=== PATIENT | male | born 1960 | race Caucasian/White ===

== ENCOUNTER 2019-04-28 21:39 | Emergency (ER) | payer OTHER ==
[~2019-04-28] VITALS: Ht 170.2 cm; Wt 88.5 kg
--- OUTSIDE RECORDS SUMMARY | 2019-04-28 21:41 | XMS REPORT | Clinical Summary ---
Author Author [facility] Organization [facility] Address Unknown Phone Unavailable Care Team Providers Care Health And Social Care Teacher Name Role Phone Tano Couch MD PCP Allergies No Known Allergies Medications End Date Status Medication Sig Dispensed Refills Start Date Active atenolol (TENORMIN) 100 atenolol 100 0 MG tabletIndications: mg tablet Essential hypertension, TAKE 1 Embolus (HCC) TABLET BY MOUTH EVERY DAY Active atorvastatin (LIPITOR) 80 atorvastatin 0 MG tabletIndications: 80 mg tablet Essential hypertension, TAKE 1 Embolus (HCC) TABLET BY MOUTH EVERY DAY Active fenofibrate (LOFIBRA) 160 fenofibrate 0 MG tabletIndications: 160 mg tablet Essential hypertension, TAKE 1 Embolus (HCC) TABLET BY MOUTH EVERY DAY Active FLUoxetine (PROzac) 40 MG fluoxetine 40 0 capsuleIndications: mg capsule Essential hypertension, TAKE ONE Embolus (HCC) CAPSULE BY MOUTH EVERY DAY Active lisinopril lisinopril 20 0 (PRINIVIL,ZESTRIL) 20 mg mg tablet tabletIndications: Take 1 Essential hypertension, tablet every Embolus (HCC) day by oral route as directed for 90 days. 09/14/2019 Active ezetimibe (ZETIA) 10 mg Take 1 tablet 90 tablet 3 tablet (10 mg total) 8 by mouth daily. 12/14/2019 Active aspirin (ECOTRIN) 81 MG Take 1 tablet 100 tablet 3 enteric coated tablet (81 mg total) 9 by mouth daily. 12/13/2018 Discontinued aspirin (ECOTRIN) 81 MG Take 1 tablet 100 tablet 3 enteric coated tablet (81 mg total) 8 by mouth daily. 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); Essential hypertension; Hyperlipidemia LDL goal <70 09/14/2018 Office Visit Neurology Leslie Hdez MA Result - Cardiac Imaging/Diagnostic Testing 09/01/2018 Telephone Cardiology Lurdes Medina MD Essential hypertension (Primary Dx); Embolus (HCC); Hypercholesterolemia; Amaurosis fugax 08/30/2018 Office Visit Cardiology after 04/27/2018 Family History Medical History Relation Name Comments Heart disease Father coronary arterisclerosis Other Father malignant tumor of the colon Heart disease Mother coronary arterisclerosis Hypertension Sister Relation Name Status Comments Father Mother Sister Social History Date Tobacco Use Types Packs/Day Years Used Never Smoker Smokeless Tobacco: Chew Current User Alcohol Use Drinks/Week oz/Week Comments Yes 2-3 per day Sex Assigned at Date Recorded Not on file Industry Job Start Date Occupation Not on file Not on file Not on file Travel End Travel History Travel Start No recent travel history available. Last Filed Vital Signs Time Taken Vital Sign Reading 09/14/2018 12:31 PM CDT Blood Pressure 195/97 09/14/2018 12:31 PM CDT Pulse 53 - Temperature - - Respiratory Rate - 08/30/2018 10:44 AM CDT Oxygen Saturation 98% - Inhaled Oxygen - Concentration 09/14/2018 12:28 PM CDT Weight 91.6 kg (202 lb) 09/14/2018 12:28 PM CDT Height 170.2 cm (5' 7") 09/14/2018 12:28 PM CDT Body Mass Index 31.64 Plan of Treatment Health Maintenance Due Date Last Done Comments COLON CANCER SCREENING 2012 SHINGLES VACCINES (#1) 2012 INFLUENZA VACCINE 06/21/2019 Procedures Comments Procedure Name Priority Date/Time Associated Diagnosis MRA NECK WO CONTRAST Routine 09/26/2018 MRI BRAIN WO CONTRAST Routine 09/26/2018 ECHOCARDIOGRAM 2D Routine 08/30/2018 Essential hypertension COMPLETE W MMODE SPECTRAL 11:29 AM CDT Embolus (HCC) COLOR DOPPLER (57079) ECG 12-LEAD Routine 08/30/2018 Essential hypertension 8:38 AM CDT Embolus (HCC) after 04/27/2018 Results * MRI Brain Wo Contrast (09/26/2018) Narrative Performed At * MRA Neck Wo Contrast (09/26/2018) Narrative Performed At * Echocardiogram complete w contrast and 3D if needed (08/30/2018 11:29 AM CDT) Specimen Narrative Performed At [facility] Echocardiography Report Pat.Name:Ruddy WARREN.ID:[id number] .Date: 08/30/2018Refer.MD:LURDES MEDINA MD Exam Time: 10:49:00 AM Study Type:Routine Echo Height:67inWeight:202lb BSA: 2.03 m2 DOBAge:1960,58Y Sex: MALEBP:153/74 HR:66 bpmSonogrphr: Alo Zamduio RDCS Pat. Stat.:[facility]patient[facility] Study Status:Final Echo Event ID:[id number] Order ID:[id number] Reason for Study:Essential hypertension; Embolus History / Clinical:Hyperlipidemia, Hypertension, Carotid Artery Stenosis Procedures:2D Echo, Colorflow Doppler, Strain SUMMARY: LV size is normal.LV EF is normal. FINDINGS: LV: LV size is normal. LV EF is normal. LV GLS is -21.2%. Overallwall motion is normal. Estimated EF is 65-69% RV: RV size is normal. RV systolic function is normal. LA: LA size is normal. RA: RA size is normal. AO: Aortic root diameter is normal. ELAINE: No pericardial effusion. AV: No structural AV abnormalities noted. MV: No structural MV abnormalities noted. PV: No structural PV abnormalities noted. A trace of pulmonic regurgitation. TV: No structural TV abnormalities noted. A trace of tricuspid regurgitation Shaw: Normal diastolic function. Other:Insufficient TR jet to estimate PA systolic pressure. MEASUREMENTS: 2D Parasternal Long [place] Ds4 cmLVPWd1 cm LVOT 2.1 cmAo An2.7 cm LVIDd5 cmIndex2.5 cm/m Ao Rtd 3.2 cm Index1.6 cm/m LVIDs2.3 cm LV Adgm239.9 g(122-174) LV%fs 53.4 % LVM Index 70.4 g/m2 IVSd 0.7 cmRWT0.4 Signed 08/31/2018 03:33 PM Boyd Wolfe M.D. Procedure Note Interface, Radiology Results In - 08/31/2018 3:33 PM CDT [facility] Echocardiography Report Pat.Name: LACEY WARREN Ailin.ID: [id number] .Date: 08/30/2018 Refer.MD: LURDES MEDINA MD Exam Time: 10:49:00 AM Study Type:Routine Echo Height: 67in Weight: 202lb BSA: 2.03 m2 Age: 6 1960,58Y Sex: MALE BP: 153/74 HR: 66 bpm Sonogrphr: Alo Zamudio RDCS Pat. Stat.:Outpatient Room: [facility] Study Status:Final Echo Event ID:[id number] Order ID: [id number] Reason for Study:Essential hypertension; Embolus History / Clinical:Hyperlipidemia, Hypertension, Carotid Artery Stenosis Procedures:2D Echo, Colorflow Doppler, Strain SUMMARY: LV size is normal. LV EF is normal. FINDINGS: LV: LV size is normal. LV EF is normal. LV GLS is -21.2%. Overall wall motion is normal. Estimated EF is 65-69% RV: RV size is normal. RV systolic function is normal. LA: LA size is normal. RA: RA size is normal. AO: Aortic root diameter is normal. ELAINE: No pericardial effusion. AV: No structural AV abnormalities noted. MV: No structural MV abnormalities noted. PV: No structural PV abnormalities noted. A trace of pulmonic regurgitation. TV: No structural TV abnormalities noted. A trace of tricuspid regurgitation Shaw: Normal diastolic function. Other: Insufficient TR jet to estimate PA systolic pressure. MEASUREMENTS: 2D Parasternal Long [place] Ds 4 cm LVPWd 1 cm LVOT 2.1 cm Ao An 2.7 cm LVIDd 5 cm Index 2.5 cm/m Ao Rtd 3.2 cm Index 1.6 cm/m LVIDs 2.3 cm LV Mass 142.9 g (122-174) LV%fs 53.4 % LVM Index 70.4 g/m2 IVSd 0.7 cm RWT 0.4 Signed 08/31/2018 03:33 PM Boyd Wolfe M.D. Performing Organization Address City/State/Zipcode Phone Number [facility] [address] [place] [address] * ECG 12 lead (08/30/2018 8:38 AM CDT) [facility] Signature Ventricular 50 [facility] rate Atrial rate 50 [facility] [place] interval 148 [facility] QRSD interval 86 [facility] QT interval 434 [facility] QTC interval 395 [facility] P axis 1 53 H MUSE QRS axis 1 77 [facility] T wave axis 41 [facility] EKG impression Sinus bradycardia-Otherwise [facility] normal ECG-No previous ECGs available- Specimen Performing Organization Address City/State/Zipcode Phone Number [facility] [address] [place] [address] after 04/27/2018 Insurance Type Payer Benefit Subscriber ID Effective Phone Address Plan / Dates Group HMO CIGNA CIGNA OPEN xxxxxxxxxxx [id number] ACCESS/NET resent WORK Advance Directives Patient has advance care planning documents on file. For more information, martha felix contact: Aleks Bello [address] [place] [address]
--- OUTSIDE RECORDS SUMMARY | 2019-04-28 21:41 | XMS REPORT | Continuity of Care Document ---
Author Author Eliza allenann [facility] [place] Interface Address Unknown Phone Unavailable Problems Problem Status Onset Date Classification Date Reported Comments Source RT SHOULDER SX 05/18/16 Active 05/18/2016 [facility] [place] BBDC-COLORECTAL CANCER SCREENING Active 09/10/2013 [facility] RT SHOULDER Active [facility] [place] RIGHT SHOULDER Active [facility] [place] LT SHOULDER Active [facility] [place] Medications Medication Details Route Status Patient Instructions Ordering Provider Order Date Source Allergies, Adverse Reactions, Alerts Substance Category Reaction Severity Reaction type Status Date Reported Comments Source Immunizations Immunization Date Given Site Status Last Updated Comments Source Results Order Name Results Value Reference Range Date Interpretation Comments Source Shoulder wo contrast MRI Shoulder wo contrast MRI EXAM: MR RIGHT SHOULDER WITHOUT CONTRAST DATE: 03/25/2016 7:48 AM CDT INDICATION: M75.121 Complete rotator cuff tear or rupture of right shoulder, not specified as traumatic COMPARISON: None available TECHNIQUE: Axial, oblique coronal, and oblique sagittal MR images of the shoulder. IV contrast: None. FINDINGS: Biceps tendon: Diminutive appearance of the intra-articular aspect with normal appearance of the extra-articular portion within the bicipital groove. Labrum: Chronic tear of the anterior inferior aspect. Mild intrasubstance degeneration of the superior labrum. Rotator cuff: Supraspinatus: Fraying of the anteriormost distal fibers. 1.4 cm full-thickness tear of the conjoined tendon with approximately 1 cm of retraction. Infraspinatus: Tendinosis of the distal fibers. Subscapularis: Mild tendinosis of the superior most fibers of the distal tendon. Teres minor: Intact. Muscles: Nearly 100% fatty atrophy of the subscapularis. Cartilage: No focal defects. Acromial osseous outlet: There is a type I acromion. Mild to moderate hypertrophic degenerative changes of the acromioclavicular joint noted. Bones: Visualized marrow signal is unremarkable. No fracture. Mild superior subluxation at the glenohumeral joint. Soft tissues: Small amount of subdeltoid bursal fluid secondary to the full- thickness focal rotator cuff tear described above. IMPRESSION: 1. Focal 1.4 cm AP dimension full-thickness tear of the conjoined tendon with approximately 1 cm retraction. 2. Severe fatty atrophy of the subscapularis muscle. 3. Chronic, nondisplaced anteroinferior labral tear. 4. High signal and diminutive intra-articular biceps tendon representing tendinosis with potential partial-thickness tear. 03/25/2016 - - This report was dictated by a [employer]/Fellow. I have personally reviewed the images as well as the Resident's interpretation and agree with the findings. Read by: Iván Fernandez (Resident) Resident: Iván Fernandez (Resident) Dictated Date/time: 03/25/16 11:34 Electronically Signed by: Ebenezer Lopez MD 03/26/16 14:20 FINAL REPORT DELIA Lopez Vital Signs Vital Sign Value Date Comments Source Encounters Location Location Details Encounter Type Encounter Number Reason For Visit Attending Provider ADM Date DC Date Status Source [facility] [id number] KARINA WEISS 11/12/2013 11/12/2013 Active [facility] [place] [facility] [id number] Henry Valenzuela 03/25/2016 03/26/2016 DELIA Lopez [facility] [place] [facility] [id number] Ayden Chan 06/09/2016 07/09/2016 [facility] [place] [facility] [place] [facility] [id number] Ayden Chan 07/09/2016 08/08/2016 [facility] [place] [facility] [place] [facility] [id number] Ayden Chan 08/09/2016 09/08/2016 [facility] [place] [facility] [place] [facility] [id number] Ayden Chan 09/08/2016 10/08/2016 [facility] [place] [facility] [place] [facility] [id number] Ayden Chan 10/11/2016 11/10/2016 [facility] [place] Procedures Procedure Code Date Perfomer Comments Source
--- OUTSIDE RECORDS SUMMARY | 2019-04-28 21:42 | XMS REPORT | Summary of Care ---
Author Author [facility] Address Unknown Phone Unavailable Encounter Encntr_aligerardo([facility]) [id number] Date(s): 07/09/16 - 08/07/16 [facility] Discharge Disposition: Home or Self Care Attending Physician: Ayden Chan MD Vital Signs No data available for this section Problem List No data available for this section Allergies, Adverse Reactions, Alerts No data available for this section Medications No data available for this section Results No data available for this section Immunizations No data available for this section Procedures No data available for this section Social History No data available for this section Assessment and Plan No data available for this section
--- OUTSIDE RECORDS SUMMARY | 2019-04-28 21:42 | XMS REPORT ---
Author Organization Unknown Address [address] [place] [address] Phone [phone] Care Team Providers Care Cleaning Staff Supervisor Name Role Phone MARGARITA GARCIA MD 130 [phone] Allergies Code Code System Name Reaction Severity Status Onset NKDA Medications Name Status Start Date Stop Date acetaminophen 300 mg-codeine 30 mg tablet Completed 08/12/2016 atenolol 100 mg tablet TAKE 1 TABLET BY MOUTH EVERY DAY Active Not available atorvastatin 80 mg tablet TAKE 1 TABLET BY MOUTH EVERY DAY Active Not available benzonatate 200 mg capsule Completed 02/24/2017 ndicmzrndoutuqk-[id number]-TD 2 mg-30 mg-10 mg/5 mL syrup Completed 02/24/2017 clobetasol 0.05 % topical ointment Completed 08/12/2016 Crestor 40 mg tablet Completed 08/12/2016 cyclobenzaprine 5 mg tablet Completed 08/12/2016 eszopiclone 1 mg tablet Completed 08/12/2016 fenofibrate 160 mg tablet TAKE 1 TABLET BY MOUTH EVERY DAY Active Not available fluoxetine 40 mg capsule TAKE ONE CAPSULE BY MOUTH EVERY DAY Active Not available fluticasone 50 mcg/actuation nasal spray,suspension Completed 02/24/2017 gabapentin 300 mg capsule Completed 08/12/2016 hydrocodone 10 mg-acetaminophen 325 mg tablet Take 1 tablet as needed by oral route. Completed 02/24/2017 lisinopril 10 mg tablet TAKE 1 TABLET BY MOUTH EVERY DAY Active Not available methylprednisolone 4 mg tablets in a dose pack Completed 08/12/2016 ondansetron 4 mg disintegrating tablet Completed 08/12/2016 tramadol 50 mg tablet Completed 08/12/2016 Zithromax Z-Daryl 250 mg tablet TAKE 2 TABLETS (500 MG) BY ORAL ROUTE ONCE DAILY FOR 1 DAY THEN 1 TABLET (250 MG) BY ORAL ROUTE ONCE DAILY FOR 4 DAYS Completed 02/24/2017 Notes: OTC Nasacort AQ Problems Name Status Onset Date Source Mixed Hyperlipidemia Active 08/12/2016 Body Mass Index 25-29 - Overweight Active 08/12/2016 Macrocytosis - No Anemia Active 08/12/2016 Anxiety Active 08/12/2016 Benign Essential Hypertension Active 08/12/2016 Chews Tobacco Active 08/12/2016 Procedures Date Name Performed by 11/21/2012 Colonoscopy Notes: within the last 5 years (wnl)NO EMR FILEREPEAT IN 10 YRS PER PT Information not available Neck Spine Fusion Notes: Unknown Levels Information not available Nasal Surgery Procedure Notes: Deviated Septum and Unknown Sinus Procedure Information not available Shoulder Joint Surgery Notes: Right Rotator Cuff Repair Information not available 08/12/2016 Electrocardiogram [facility] [address] [place] [address] (Work Place) Lab Results Date Name Specimen Result Interpretation Description Value Range Status Address 08/25/2017 CBC W/ Auto Diff Wbc 5.56 x10*3/L 4.23-9.07 x10*3/L Final [facility] Laboratory: [address] Karol Cordero [address] [place] [address] Low Rbc 4.44 10*12/L 4.63-6.08 10*12/L Final [facility] Laboratory: [address] Karol Cordero [address] [place] [address] Hemoglobin 14.90 g/dL 13.70-17.50 g/dL Final [facility]: [address] [facility] Hemat[facility]rit 43.8 % 40.1-51.0 % Final [facility] Laboratory: [address] Karol Cordero [address] [place] [address] Mcv 98.6 fL 80.0-100.0 fL Final [facility] Laboratory: [address] Karol Cordero [address] [place] [address] High Mch 33.6 pg 25.7-32.2 pg Final [facility] Laboratory: 9055 Karol Simpson [facility] Mchc 34.0 g/dL 32.3-36.5 g/dL Final [facility]: [address] [facility] RDW-SD 41.9 fL 35.1-43.9 fL Final [facility] Laboratory: [address] Karol Cordero [address] [place] [address] Platelet Count 279.0 k/uL 163.0-337.0 k/uL Final [facility] Laboratory: [address] Karol Simpson [address] Mpv 11.4 fL 7.5-11.5 fL Final [facility] Laboratory: [address] Karol Mckenna [place] Neut% 62.5 % 34.0-67.9 % Final [facility] Laboratory: [address] Karol Mckenna [place] Lymph% 22.1 % 21.8-53.1 % Final [facility] Laboratory: [address] Karol Mckenna, [place] Mon% 11.7 % 5.3-12.2 % Final [facility] Laboratory: [address] Kar[address] Mckenna [place] Eos% 3.2 % 0.8-7.0 % Final [facility] Laboratory: [address] Karol Mckenna, [place] Baso% 0.5 % 0.2-1.2 % Final [facility] Laboratory: [address] Kar[address] Mckenna [place] Neut# 3.5 x10*3/L 1.8-5.4 x10*3/L Final [facility]: [address] [facility] Low Lymph# 1.2 x10*3/L 1.3-3.6 x10*3/L Final [facility]: [address] [facility] Mon# 0.7 x10*3/L 0.3-0.8 x10*3/L Final [facility] Laboratory: [address] Karol Cordero [address] [place] [address] Eos# 0.18 x10*3/L 0.04-0.54 x10*3/L Final [facility]: [address] [facility] Baso# 0.03 x10*3/L 0.01-0.08 x10*3/L Final [facility]: [address] [facility] 08/25/2017 CMP, Serum or Plasma Alt 36 U/L 0-55 U/L Final [facility] Laboratory: [address] Karol Simpson [address] Ast 23 U/L 5-34 U/L Final [facility]: [address] [facility] Bun 15.7 mg/dL 8.4-25.7 mg/dL Final [facility] Laboratory: [address] Karol Cordero [address] [place] [address] Alk Phos 45 unit/L 40-150 unit/L Final [facility]: [address] Karol Simpson [address] Glucose 95 mg/dL 70-99 mg/dL Final [facility] Laboratory: [address] Kar[address] Mckenna [place] Albumin 3.9 g/dL 3.5-5.0 g/dL Final [facility] Laboratory: [address] Kar[address] Mckenna, [place] Creatinine 0.98 mg/dL 0.72-1.25 mg/dL Final [facility]: [address] Kar[address] Mckenna, [place] eGFR Non- >60 mL/min/1.73m2 >60 mL/min/1.73m2 Final [facility]: [address] Kar[address] Mckenna, [place] High Total Bilirubin 1.3 mg/dL 0.2-1.2 mg/dL Final [facility] Laboratory: [address] Karol Mckenna, [place] eGFR - >60 mL/min/1.73m2 >60 mL/min/1.73m2 Final [facility] Laboratory: [address] Karol Mckenna, [place] Sodium 142 mEq/L 136-145 mEq/L Final [facility] Laboratory: [address] Karol Cordero [address] [place] [address] Potassium 4.8 mEq/L 3.5-5.1 mEq/L Final [facility] Laboratory: [address] Kar[address] Simpson [address] Chloride 105 mmol/L 98-107 mmol/L Final [facility] Laboratory: [address] Karol Mckenna, [place] Total Protein 7.4 g/dL 6.4-8.3 g/dL Final [facility]: [address] [facility] Calcium 10.0 mg/dL 8.4-10.2 mg/dL Final [facility] Laboratory: [address] Kar[address] Mckenna, [place] Co2 25.8 mmol/L 22.0-29.0 mmol/L Final [facility] Laboratory: [address] Karol Simpson [address] Anion Gap 11 calc Final [facility] Laboratory: [address] Karol Mckenna, [place] 08/25/2017 Lipid Panel, Serum Hdl 42 mg/dL 40-60 mg/dL Final [facility]: [address] [facility] High Triglyceride 189 mg/dL 0-149 mg/dL Final [facility] Laboratory: [address] Kar[address] [place] [address], [place] VLDL Calc. 38 mg/dL Final [facility]: [address] Karol Simpson [address] cholesterol/HDL Ratio 3.4 mg/dL Final [facility] Laboratory: [address] Karol Simpson [address] non-HDL Cholesterol Calc. 101 mg/dL 0-160 mg/dL Final [facility] Laboratory: [address] Karol Simpson [address] Cholesterol 143 mg/dL 0-199 mg/dL Final [facility] Laboratory: [address] Karol Simpson [address] LDL Calc. 63 mg/dL 0-130 mg/dL Final [facility]: [address] Karol Simpson [address] 08/25/2017 TSH, Serum or Plasma Tsh 1.676 uIU/mL 0.350-4.940 uIU/mL Final [facility] Laboratory: [address] Karol dejon [address] 02/24/2017 CMP, Serum or Plasma Alt 25 U/L 0-55 U/L Final [facility] Laboratory: [address] Kar[address] dejon [address] Ast 18 U/L 5-34 U/L Final [facility]: [address] Kar[address] dejon [address] Bun 14 mg/dL 8-26 mg/dL Final [facility]: [address] Kar[address] dejon [address] Alk Phos 44 unit/L 40-150 unit/L Final [facility]: [address] Karol dejon [address] Glucose 97 mg/dL 70-99 mg/dL Final [facility] Laboratory: [address] Kar[address] dejon [address] Albumin 4.0 g/dL 3.5-5.0 g/dL Final [facility] Laboratory: [address] Kar[address] dejon [address] Creatinine 0.90 mg/dL 0.72-1.25 mg/dL Final [facility] Laboratory: [address] Kar[address] dejon [address] eGFR Non- >60 mL/min/1.73m2 >60 mL/min/1.73m2 Final [facility] Laboratory: [address] Akrol dejon [address] Total Bilirubin 0.9 mg/dL 0.2-1.2 mg/dL Final [facility] Laboratory: [address] Kar[address] dejon [address] eGFR - >60 mL/min/1.73m2 >60 mL/min/1.73m2 Final [facility] Laboratory: [address] Kar[address] dejon [address] Sodium 140 mEq/L 137-144 mEq/L Final [facility] Laboratory: [address] Karol dejon [address] Potassium 4.7 mEq/L 3.5-5.0 mEq/L Final [facility] Laboratory: [address] Karol dejon [address] Chloride 103 mmol/L 101-110 mmol/L Final [facility] Laboratory: [address] Karol dejon [address] Total Protein 7.2 g/dL 6.4-8.3 g/dL Final [facility] Laboratory: [address] Karol dejon [address] Calcium 10.1 mg/dL 8.4-10.2 mg/dL Final [facility] Laboratory: [address] Kar[address] dejon [address] High Co2 29.1 mmol/L 21.0-29.0 mmol/L Final [facility] Laboratory: [address] Anion Gap 8 calc Final [facility] Laboratory: [address] Karol dejon [address] 02/24/2017 Lipid Panel, Serum Low Hdl 39 mg/dL 40-60 mg/dL Final [facility] Laboratory: [address] Karol dejon [address] High Triglyceride 275 mg/dL 0-149 mg/dL Final [facility] Laboratory: [address] VLDL Calc. 55 mg/dL Final [facility]: [address] cholesterol/HDL Ratio 6 mg/dL Final [facility] Laboratory: [address] Karol dejon [address] High non-HDL Cholesterol Calc. 183 mg/dL 0-160 mg/dL Final [facility] Laboratory: [address] Kar[address] dejon [address] High Cholesterol 222 mg/dL 0-199 mg/dL Final [facility] Laboratory: [address] Karol dejon [address] LDL Calc. 128 mg/dL 0-130 mg/dL Final [facility] Laboratory: [address] Karol dejon [address] 02/24/2017 TSH, Serum or Plasma Tsh 1.081 uIU/mL 0.350-4.940 uIU/mL Final [facility] Laboratory: [address] Karol dejon [address] 02/24/2017 PSA, Serum or Plasma PSA, Total 0.76 NG/mL <4.00 NG/mL Final [facility] Laboratory: [address] Kar[address] dejon [address] 08/12/2016 Hepatitis C Virus RNA, Quant, PCR, Serum or Plasma Normal Hepatitis C Antibody non-reactive non-reactive Final [facility] Laboratory: [address] Kar[address] Cordero [address] [place] [address] Normal Signal to Cut-off 0.02 <1.00 Final [facility]: [address] [facility] 08/12/2016 CBC W/ Auto Diff Wbc 4.43 x10*3/L 2.90-10.50 x10*3/L Final [facility]: 55 [facility] Rbc 4.61 10*12/L 3.61-5.21 10*12/L Final [facility] Laboratory: [address] Karol Simpson [address] Hemoglobin 15.1 g/dL 12.3-17.5 g/dL Final [facility] Laboratory: 55 Karol Cordero [address] [place] [address] Hematocrit 44.6 % 37.1-51.3 % Final [facility] Laboratory: [facility] Karol Cordero [address] [place] [address] Mcv 96.7 fL 79.4-101.6 fL Final [facility] Laboratory: [facility] Karol Cordero [address] [place] [address] Mch 32.8 pg 26.2-34.8 pg Final [facility] Laboratory: [address] Kar[address] Cordero [address] [place] [address] Mchc 33.9 g/dL 30.2-35.6 g/dL Final [facility] Laboratory: [address] Kar[address] Cordero [address] [place] [address] RDW-SD 40.8 fL 35.8-49.8 fL Final [facility] Laboratory: 55 Karol Simpson [address] Platelet Count 300.0 k/uL 118.8-347.0 k/uL Final [facility] Laboratory: 55 Karol Cordero [address] [place] [address] Mpv 11.1 fL 8.4-13.4 fL Final [facility] Laboratory: [address] Kar[address] Cordero [address] [place] [address] Neut% 53.3 % 39.1-76.5 % Final [facility] Laboratory: [address] Simpson [address] Lymph% 28.4 % 13.8-46.8 % Final [facility] Laboratory: [address] Simpson [address] Mon% 13.3 % 4.6-14.4 % Final [facility] Laboratory: [address] Simpson [address] Eos% 4.300 % 0.001-7.300 % Final [facility] Laboratory: [address] Karol Mckenna [place] Baso% 0.7 % 0.0-1.5 % Final [facility] Laboratory: [address] Karol Mckenna [place] Neut# 2.4 x10*3/L 0.8-7.0 x10*3/L Final [facility] Laboratory: [address] Kar[address] Mckenna [place] Lymph# 1.3 x10*3/L 0.6-3.2 x10*3/L Final [facility] Laboratory: [address] Kar[address] Mckenna, [place] Mon# 0.6 x10*3/L 0.2-1.0 x10*3/L Final [facility] Laboratory: [address] Kar[address] Mckenna [place] Eos# 0.19 x10*3/L 0.00-0.51 x10*3/L Final [facility] Laboratory: [address] Kar[address] Mckenna [place] Baso# 0.030 x10*3/L 0.001-0.090 x10*3/L Final [facility] Laboratory: [address] Kar[address] Mckenna [place] 08/12/2016 CMP, Serum or Plasma Alt 36.0 U/L 0.0-55.0 U/L Final [facility] Laboratory: [address] Kar[address] Cordero [address] [place] [address] Ast 20.0 U/L 5.0-34.0 U/L Final [facility]: [address] [facility] Bun 15.0 mg/dL 8.0-26.0 mg/dL Final [facility] Laboratory: [address] Karol Cordero [address] [place] [address] Alk Phos 50.0 unit/L 40.0-150.0 unit/L Final [facility]: [address] [facility] Glucose 92.0 mg/dL 70.0-99.0 mg/dL Final [facility]: [address] [facility] Albumin 4.2 g/dL 3.5-5.0 g/dL Final [facility]: [address] [facility] Creatinine 0.9 mg/dL 0.7-1.3 mg/dL Final [facility]: [address] [facility] eGFR Non- >60 mL/min/1.73m2 >60.0 mL/min/1.73m2 Final [facility] Laboratory: [address] Kar[address] Mckenna, [place] Total Bilirubin 1.0 mg/dL 0.2-1.2 mg/dL Final [facility] Laboratory: [address] Karol Mckenna, [place] eGFR - >60 mL/min/1.73m2 >60.0 mL/min/1.73m2 Final [facility] Laboratory: [address] Karol Mckenna, [place] Sodium 142.0 mEq/L 137.0-144.0 mEq/L Final [facility] Laboratory: [address] Karol Mckenna, [place] High Potassium 5.3 mEq/L 3.5-5.0 mEq/L Final [facility] Laboratory: [address] Simpson [place] [address], [place] Chloride 106.0 mmol/L 101.0-110.0 mmol/L Final [facility]: 9055 [facility] Total Protein 7.6 g/dL 6.4-8.3 g/dL Final [facility] Laboratory: [address] Simpson [address] High Calcium 10.3 mg/dL 8.4-10.2 mg/dL Final [facility] Laboratory: [address] Karol Cordero [facility], [place] Co2 26.5 mmol/L 22.0-29.0 mmol/L Final [facility]: [address] [facility] Anion Gap 9.5 calc Final [facility] Laboratory: [address] Karol Mckenna, [place] 08/12/2016 Lipid Panel, Serum Hdl 44.0 mg/dL 40.0-60.0 mg/dL Final [facility]: [address]055 [facility] High Triglyceride 327.0 mg/dL 0.0-149.0 mg/dL Final [facility] Laboratory: [address] [place] [address], [place] VLDL Calc. 65.4 mg/dL Final [facility]: [address] Karol Simpson [facility] cholesterol/HDL Ratio 3.7 mg/dL Final [facility] Laboratory: [address] Kar[address] Simpson [place] [address], [place] non-HDL Cholesterol Calc. 118.0 mg/dL 0.0-160.0 mg/dL Final [facility] Laboratory: [address] Simpson [address] Cholesterol 162.0 mg/dL 0.0-199.0 mg/dL Final [facility] Laboratory: [address] LDL Calc. 52.6 mg/dL 0.0-130.0 mg/dL Final [facility] Laboratory: [address] 10/29/2015 Lipid Panel, Serum No observation recorded. Electrocardiogram Rate & Rhythm 65 [facility]: [address] [facility] [place] Interval 146 [facility]: [address] [facility] QRS Duration 96 [facility]: [address] [facility] QT Interval 404 [facility]: [address] [facility] Past Encounters 02/23/2018 Mixed Hyperlipidemia; Benign Essential Hypertension; Anxiety; Allergic Rhinitis; Body Mass Index 25-29 - Overweight Tano Vernon MD: [address] [place] [phone], Ph. 08/25/2017 Adult Health Examination; Benign Essential Hypertension; Mixed Hyperlipidemia; Anxiety; Body Mass Index 25-29 - Overweight; Influenza Vaccination Tanosarah Vernon MD: [address] [place] [phone], Ph. 02/24/2017 Benign Essential Hypertension; Mixed Hyperlipidemia; Anxiety; Screening for Malignant Neoplasm of Prostate; Body Mass Index 25-29 - Overweight; Alcohol Abuse Tano Vernon MD: [address] [place] [phone], Ph. 08/25/2016 Upper Respiratory Infection; Skin Lesion Tano Vernon MD: [address] [place] [phone], Ph. 08/23/2016 Dafne Larios MD: [address] [place] [phone], Ph. 08/12/2016 Benign Essential Hypertension; Mixed Hyperlipidemia; Anxiety; Macrocytosis - No Anemia; Body Mass Index 25-29 - Overweight; Adult Health Examination; Chews Tobacco Dafne Larios MD: [address] [place] [address], Ph. Social History Smoking Status Never Smoker Vaccine List Vaccine Type Tdap 12/30/2015 Plan of Care Reminders Provider Appointments None recorded. Lab None recorded. Referral None recorded. Procedures None recorded. Surgeries None recorded. Imaging None recorded. Vitals 02/23/2018 08:15AM Est Patient Height Weight BMI Blood Pressure 5 ft 10 in 200 lbs 28.7 kg/m2 (1) 140/80 mm[Hg] (2) 140/80 mm[Hg] 08/25/2017 08:15AM Est Patient Height Weight BMI Blood Pressure 5 ft 10 in 199 lbs 28.6 kg/m2 140/76 mm[Hg] 02/24/2017 10:30AM Est Patient Height Weight BMI Blood Pressure 5 ft 10 in 199 lbs 28.6 kg/m2 137/79 mm[Hg] 08/25/2016 11:00AM Work In Same Day Height Weight BMI Blood Pressure 5 ft 10 in 194 lbs 27.8 kg/m2 139/90 mm[Hg] 08/12/2016 07:00AM Est Patient Height Weight BMI Blood Pressure 5 ft 10 in 196 lbs 28.1 kg/m2 (1) 164/93 mm[Hg] (2) 151/99 mm[Hg]
--- OUTSIDE RECORDS SUMMARY | 2019-04-28 21:42 | XMS REPORT | Summary of Care ---
Author Author [facility] Address Unknown Phone Unavailable Encounter [email or web address]([facility]) [id number] Date(s): 06/09/16 - 07/08/16 [facility] Discharge Disposition: Home or Self Care Attending [...]
--- OUTSIDE RECORDS SUMMARY | 2019-04-28 21:42 | XMS REPORT | Summary of Care ---
Author Author [facility] Address Unknown Phone Unavailable Encounter [email or web address]([facility]) [id number] Date(s): 09/08/16 - 10/07/16 [facility] Discharge Disposition: Home or Self Care Attending [...]
--- OUTSIDE RECORDS SUMMARY | 2019-04-28 21:42 | XMS REPORT | Encounter Summary ---
Author Organization Unknown Address [address] [place] [address] Phone [phone] Care Team Providers Care Graphotype Operator Name Role Phone Dr. Tano Stein 3 [phone] Reason for Visit Benign essential hypertension; Mixed hyperlipidemia; Annual physical - male with PSA Instructions 1. Adult health examination CBC w/ auto diff CMP, serum or plasma lipid panel, serum TSH, serum or plasma urinalysis, dipstick 2. Screening for malignant neoplasm of prostate PSA, serum or plasma 3. Benign essential hypertension atenolol 100 mg tablet aspirin 81 mg tablet,delayed release lisinopril 40 mg tablet 4. Mixed hyperlipidemia atorvastatin 80 mg tablet ezetimibe 10 mg tablet fenofibrate 160 mg tablet 5. Anxiety fluoxetine 40 mg capsule 6. Microscopic hematuria urinalysis complete, reflex culture 7. Pain in right knee XR, knee, 1 or 2 view - PLEASE CALL PATIENT AND SCHEDULE HIM AN APPOINTMENT. PLEASE FAX RESULTS TO [phone]. 8. Body mass index 25-29 - overweight learning about healthy weight Discussion Note: None recorded. Plan of Care Reminders Provider Appointments Est Patient 06/01/2019 8:15AM Tano Vernon MD Lab CBC W/ Auto Diff 03/02/2019 [facility] CMP, Serum or Plasma 03/02/2019 [facility] Lipid Panel, Serum 03/02/2019 [facility] TSH, Serum or Plasma 03/02/2019 [facility] Urinalysis, Dipstick 03/02/2019 [facility] ([facility] [place] PSA, Serum or Plasma 03/02/2019 [facility] Urinalysis Complete, Reflex Culture 03/02/2019 [facility] Referral None recorded. Procedures None recorded. Surgeries None recorded. Imaging XR, Knee, 1 or 2 View 03/02/2019 [facility] [place] Medications Name Start Date aspirin 81 mg tablet,delayed release Take 1 tablet every day by oral route. atenolol 100 mg tablet TAKE 1 TABLET BY MOUTH EVERY DAY atorvastatin 80 mg tablet TAKE 1 TABLET BY MOUTH EVERY DAY ezetimibe 10 mg tablet Take 1 tablet every day by oral route. fenofibrate 160 mg tablet TAKE 1 TABLET BY MOUTH EVERY DAY fluoxetine 40 mg capsule TAKE 1 CAPSULE BY MOUTH EVERY DAY lisinopril 30 mg tablet Take 1 tablet every day by oral route as directed for 90 days. lisinopril 40 mg tablet Take 0.5 tablets twice a day by oral route as directed for 90 days. Medications Administered None recorded. Vitals Height Weight BMI Blood Pressure 5 ft 10 in 195.8 lbs 28.1 kg/m2 124/70 mm[Hg] Lab Results None recorded. 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 [address] [place] [address] (Work Place) Vaccine List Vaccine Type Tdap 12/30/2015 Social History Smoking Status Never Smoker Past Encounters 03/02/2019 Adult Health Examination; Screening for Malignant Neoplasm of Prostate; Benign Essential Hypertension; Mixed Hyperlipidemia; Anxiety; Microscopic Hematuria; Pain in Right Knee; Body Mass Index 25-29 - Overweight Tano Vernon MD: [address] [place] [address], Ph. History of Present Illness Note:Coming for a physical exam and f/u on chronic conditions. BPs at home 150s/90 in the afternoons. Compliant with meds and exercise. Non compliant with diet. No side effects with meds. No new concerns. Review of Systems Comprehensive General Adult ROS Reported By: Patient Constitutional: Constitutional: no fever, no night sweats, no significant weight gain, no significant weight loss, no exercise intolerance Eyes: Eyes: no dry eyes, no irritation, vision change ENMT: Ears: no difficulty hearing, no ear pain. Nose: no frequent nosebleeds, no nose problems, no sinus problems. Mouth/Throat: no sore throat, no bleeding gums, no snoring, no dry mouth, no mouth ulcers, no oral abnormalities, no teeth problems Cardiovascular: Cardiovascular: no chest pain, no arm pain on exertion, no shortness of breath when walking, no shortness of breath when lying down, no palpitations, no known heart murmur, no lightheadedness Respiratory: Respiratory: no cough, no wheezing, no shortness of breath, no coughing up blood, no sleep apnea Gastrointestinal: Gastrointestinal: no abdominal pain, no nausea, no vomiting, no constipation, normal appetite, no diarrhea, not vomiting blood, no dyspepsia, no GERD Genitourinary: Genitourinary: no incontinence, no difficulty urinating, no hematuria, no increased frequency Musculoskeletal: Musculoskeletal: no muscle aches, no muscle weakness, no back pain, no swelling in the extremities, arthralgias/joint pain Integumentary: Skin: no abnormal mole, no jaundice, no rashes, no laceration Neurologic: Neurologic: no loss of consciousness, no weakness, no numbness, no seizures, no dizziness, no migraines, no headaches, no tremor Psychiatric: Psych: no depression, no sleep disturbances, feeling safe in a relationship, no alcohol abuse, no anxiety, no hallucinations, no suicidal thoughts Endocrine: Endocrine: no fatigue Hematologic/Lymphatic: Hematologic/Lymphatic no swollen glands, no bruising, no excessive bleeding Allergic/Immunologic: Allergy/Immunologic: no runny nose, no sinus pressure, no itching, no hives, no frequent sneezing Physical Exam General Adult Exam (male) Reported By: Patient Constitutional: General Appearance: healthy-appearing, overweight. Level of Distress: NAD. Ambulation: ambulating normally Psychiatric: Insight: good judgement. Mental Status: active and alert, normal mood, normal affect. Orientation: to time, to place, to person. Memory: recent memory normal, remote memory normal Eyes: Lids and Conjunctivae: non-injected, no discharge. EOM: EOMI ENMT: Ears: TMs clear. Nose: no sinus tenderness. Lips, Teeth, and Gums: no mouth or lip ulcers. Oropharynx: moist mucous membranes Neck: Neck: supple, trachea midline. Thyroid: no enlargement, non-tender Lungs: Auscultation: breath sounds normal Cardiovascular: Heart Auscultation: RRR, normal S1, normal S2, no murmurs. Neck vessels: no carotid bruits. Pulses including femoral / pedal: normal throughout Abdomen: Inspection and Palpation: soft, non-distended, no tenderness, no guarding Musculoskeletal:: Motor Strength and Tone: normal, normal tone. Joints, Bones, and Muscles: normal movement of all extremities, no contractures, no bony abnormalities, no malalignment, no tenderness. Extremities: no edema Neurologic: Gait and Station: normal gait. Cranial Nerves: grossly intact. Coordination and Cerebellum: no tremor Skin: Inspection and palpation: no rash, no lesions Back: Thoracolumbar Appearance: normal curvature
--- OUTSIDE RECORDS SUMMARY | 2019-04-28 21:42 | XMS REPORT | Summary of Care ---
Author Author [facility] Address Unknown Phone Unavailable Encounter [email or web address]([facility]) [id number] Date(s): 10/11/16 - 11/09/16 [facility] Discharge Disposition: Home or Self Care Attending [...]
--- OUTSIDE RECORDS SUMMARY | 2019-04-28 21:42 | XMS REPORT | Encounter Summary ---
Author Organization Unknown Address [address] [place] [address] Phone [phone] Care Team Providers Care Customer Logistics Manager Name Role Phone Dr. Taon Stein 3 [phone] Kaleb Kelly MD 111 [phone] Joni Shin MD 111 [phone] Ayden Chan MD 130 [phone] Reason for Visit Anxiety; Benign essential hypertension; Mixed hyperlipidemia Instructions 1. Benign essential hypertension atenolol 100 mg tablet aspirin 81 mg tablet,delayed release lisinopril 30 mg tablet 2. Mixed hyperlipidemia atorvastatin 80 mg tablet fenofibrate 160 mg tablet ezetimibe 10 mg tablet 3. Anxiety fluoxetine 40 mg capsule 4. Immunization 5. Body mass index 25-29 - overweight learning about healthy weight 6. Chews tobacco stopping smokeless tobacco use: care instructions Discussion Note: None recorded. Plan of Care Reminders Provider Appointments Return to Office on or around 03/13/2019 Tano Vernon MD Lab None recorded. Referral None recorded. Procedures None recorded. Surgeries None recorded. Imaging None recorded. Medications Name Start Date aspirin 81 mg [...] 1 CAPSULE BY MOUTH EVERY DAY lisinopril 20 mg tablet TAKE 1 TABLET BY MOUTH EVERY DAY DIRECTED lisinopril 30 mg tablet Take 1 tablet every day by oral route as directed for 90 days. Medications Administered None recorded. Vitals Height Weight BMI Blood Pressure 5 ft 10 in 200 lbs 28.7 kg/m2 130/76 mm[Hg] Lab Results None recorded. Allergies Code [...] available Shoulder Joint Surgery Information not available Vaccine List Vaccine Type Tdap 12/30/2015 Social History Smoking Status Never Smoker Past Encounters 12/14/2018 Benign Essential Hypertension; Mixed Hyperlipidemia; Anxiety; Immunization; Body Mass Index 25-29 - Overweight; Chews Tobacco Tano Vernon MD: [address] [place] [address], Ph. History of Present Illness Note:Coming for a physical exam and f/u on chronic conditions. Needs refill in meds. Compliant with meds. Non compliant with diet or exercise. BPs at home 150s/90s. No side effects with meds. No new symptoms Review of Systems Comprehensive General Adult ROS [...] no muscle aches, no muscle weakness, no arthralgias/joint pain, no back pain, no swelling in the extremities Integumentary: Skin: no abnormal mole, no jaundice, [...] Bones, and Muscles: normal movement of all extremities. Extremities: no edema Neurologic: Gait and Station: normal gait. Cranial Nerves: grossly intact. Coordination and Cerebellum: no tremor Skin: Inspection and palpation: no rash, no lesions
--- OUTSIDE RECORDS SUMMARY | 2019-04-28 21:42 | XMS REPORT | Summary of Care ---
Author Author [facility] Address Unknown Phone Unavailable Encounter [email or web address]([facility]) [id number] Date(s): 08/09/16 - 09/07/16 [facility] Discharge Disposition: Home or Self Care Attending [...]
--- OUTSIDE RECORDS SUMMARY | 2019-04-28 21:42 | XMS REPORT | Summary of Care ---
Author Author [facility] Address Unknown Phone Unavailable Encounter [facility] [email or web address]([facility]) [id number] Date(s): 03/25/16 - 03/25/16 [facility] [address] [place] [address]- Discharge Disposition: Home Attending Physician: Henry Valenzuela MD Vital Signs No data available for [...]
[2019-04-28] MEDS ORDERED: ACETAMINOPHEN 325 MG TAB PO PRN (22:00)
--- NOTE | 2019-04-28 22:37 | Diagnostic Imaging Report ---
History:Head injury on top of the head anterior Comparison studies:None Technique: Axial images were obtained from the skull base to the vertex. Coronal and sagittal images reconstructed from the axial data. Intravenous contrast: None Dose modulation, iterative reconstruction, and/or weight based adjustment of the mA/kV was utilized to reduce the radiation dose to as low as reasonably achievable. Findings: Scalp/skull: No abnormalities. Extra-axial spaces: No masses. No fluid collections. Brain sulci: Mildly prominent. Ventricles: Mild compensatory dilatation. No hydrocephalus. Parenchyma: Describe hypodensities in the supratentorial white matter are small vessel ischemic changes. No masses, hemorrhage, acute or chronic cortical vascular insults. Sellar/suprasellar region: No abnormalities. Craniocervical junction: Patent foramen magnum. No Chiari one malformation. Incidental findings: Atherosclerotic calcifications in the carotid siphons . Impression: No acute abnormalities. Chronic findings: 1. Mild generalized volume loss. 2. Mild supratentorial white matter small vessel ischemic changes. Signed by: DR Ho Velasquez M.D. on 04/28/2019 10:34 PM
== END 2019-04-28 23:12 | disposition home or self-care (01) ==
LOC: ER 21:39
DX: S01.01XA Laceration without foreign body of scalp, initial encounter (principal); W20.8XXA Other cause of strike by thrown, projected or falling object, initial encounter; Y92.008 Other place in unspecified non-institutional (private) residence as the place of occurrence of the external cause
CPT/HCPCS: 70450; 99283